=== PATIENT | male | born 1995 | race Caucasian/White ===

== ENCOUNTER 2018-11-19 20:05 | Emergency (ER) | payer OTHER ==
[2018-11-19 20:21] VITALS: BP 130/89; PULSE 106; BMI 27.2
--- NOTE | 2018-11-19 20:24 | PDOC ---
History of Present Illness - History of Present Illness Initial Comments: The patient is a 23 year old male, with no significant past medical history, who presents to the emergency department with right lower lip laceration. Patient states that he was playing basketball when he was elbowed in the face by another player. Allergies: NKA Past surgical history: None reported. Social History: Nonsmoker. Denies EtOH use and recreational drug use. Primary Care Physician: Arthur Madera <Rabia Gipson - Last Filed: 11/19/18 20:37> <Jerad Pierce - Last Filed: 11/19/18 23:43> - General Chief Complaint: Laceration Stated Complaint: LIP LAC Time Seen by Provider: 11/19/18 20:09 Past History <Rabia Gipson - Last Filed: 11/19/18 20:37> - Past Medical History COPD: No - Suicide/Smoking/Psychosocial Hx Smoking History: Never smoked <Jerad Pierce - Last Filed: 11/19/18 23:43> - Past Medical History Allergies/Adverse Reactions: Allergies Allergy/AdvReac Type Severity Reaction Status Date / Time No Known Allergies Allergy Unverified 11/19/18 20:06 Home Medications: Ambulatory Orders NK [No Known Home Medication] 11/19/18 Review of Systems - Review of Systems Comments:: Constitutional: no recent illness; no fever ENT: no sore throat Cardiovascular: no palpitations; no chest pain Pulmonary: no cough; no trouble breathing Gastrointestinal: No nausea; no vomiting; no diarrhea Genitourinary: No urinary problems; no hematuria Skin: + right lower lip laceration Lymph system: No swollen glands Musculoskeletal: No joint swelling Neurological: No weakness; No numbness; No Headache; no vertigo; no lightheadedness <Rabia Gipson - Last Filed: 11/19/18 20:37> *Physical Exam - Vital Signs Last Vital Signs Temp Pulse Resp BP Pulse Ox 106 H 16 130/89 97 11/19/18 20:11 11/19/18 20:11 11/19/18 20:11 11/19/18 20:11 - Physical Exam Comments: Vitals: Triage Vital signs reviewed General Appearance: No acute distress, well nourished well developed Head: Atraumatic Nose: Nares patent bilaterally; no nasal congestion Throat: Posterior oropharynx without erythema, mucous membranes moist Extremities: Full range of motion to all extremities, no cyanosis, clubbing, or edema Skin: Lower lip laceration near right corner of mouth. Warm and dry, no rashes or lesions, no rash, no petechiae Neuro: AOX3; Cranial Nerves 2-12 grossly intact, Strength intact to all extremities, Sensation intact to all extremities, gait normal <Rabia Gipson - Last Filed: 11/19/18 20:37> - Vital Signs Last Vital Signs Temp Pulse Resp BP Pulse Ox 106 H 16 130/89 97 11/19/18 20:11 11/19/18 20:11 11/19/18 20:11 11/19/18 20:11 <Jerad Pierce - Last Filed: 11/19/18 23:43> Moderate Sedation - Procedure Monitoring Vital Signs: Procedure Monitoring Vital Signs Temperature Pulse Rate 106 H 11/19/18 20:11 Respiratory Rate 16 11/19/18 20:11 Blood Pressure 130/89 11/19/18 20:11 O2 Sat by Pulse Oximetry (%) 97 11/19/18 20:11 <Rabia Gipson - Last Filed: 11/19/18 20:37> - Procedure Monitoring Vital Signs: Procedure Monitoring Vital Signs Temperature Pulse Rate 106 H 11/19/18 20:11 Respiratory Rate 16 11/19/18 20:11 Blood Pressure 130/89 11/19/18 20:11 O2 Sat by Pulse Oximetry (%) 97 11/19/18 20:11 <Jerad Pierce - Last Filed: 11/19/18 23:43> Procedures - Laceration/Wound Repair Right Lower Lip Wound Length: to 2.5 cm Wound Explored: clean Wound's Depth, Shape: stellate Irrigated w/ Saline: Yes Betadine Prep: Yes Anesthesia: 2% Lidocaine Wound Repaired With: Sutures Suture Size/Type: 6:0 Number of Sutures: 5 Layer Closure: Yes Deep Layer Suture Size/Type: 4:0, other Number of Deep Layer Sutures: 1 Sterile Dressing Applied: Yes <Jerad Pierce - Last Filed: 11/19/18 23:43> Medical Decision Making - Medical Decision Making 11/19/18 21:19 Through and through lip laceration 2 cm in inside lip 2 cm stellate to outside lip does cross from [place] border offered patient plastic surgery consultation patient would prefer to have laceration repaired here in the emergency department by ER doctor All teeth intact. No FB noted after irrigation Patient made aware of scar. Combination of absorbables to the inside of lip 1 deep absorbable placed and 5 6.0 used to visible outside of lip with good approximation Patient will return in 5-7 days for suture removal patient made aware of scar. Finding, need for follow-up and strict return instructions discussed patient. <Jerad Pierce - Last Filed: 11/19/18 23:43> *DC/Admit/Observation/Transfer - Attestations Scribe Attestion: 11/19/18 20:41 Documentation prepared by Rabia Gipson, acting as medical policy specialist for Jerad Pierce MD. <Rabia Gipson - Last Filed: 11/19/18 20:37> - Discharge Dispostion Decision to Admit order: No <Jerad Pierce - Last Filed: 11/19/18 23:43> Diagnosis at time of Disposition: Laceration - Discharge Dispostion Disposition: HOME Condition at time of disposition: Stable - Referrals Referrals: Arthur Madera MD [Primary Care Provider] - Dann De Jesus MD [Staff Physician] - - Patient Instructions Printed Discharge Instructions: DI for Laceration Repair Additional Instructions: Apply bacitracin twice a day to inside and outside of the lip. Return to ED in 7 days for suture removal. Avoid hard foods. Return to the emergency department immediately for any signs of infection swelling fever or for any concerns After the wound has healed please use sunscreen below the lip into the lip 1 outside for the next 8 months You can also follow-up with plastic surgery Dr. De Jesus for any revisions to the scar if desired - Post Discharge Activity
== END 2018-11-19 21:27 | disposition home or self-care (01) ==
LOC: SUPCPDRO 20:05 → FER 20:05
PROC: 0CQ1XZZ Repair Lower Lip, External Approach (ICD-10-PCS; principal; 2018-11-19)
DX: S01.511A Laceration without foreign body of lip, initial encounter (principal); W50.0XXA Accidental hit or strike by another person, initial encounter; Y93.67 Activity, basketball; Y92.310 Basketball court as the place of occurrence of the external cause
CPT/HCPCS: 99282-25